=== PATIENT | female | born 1995 ===

== ENCOUNTER 2019-06-20 14:20 | Emergency (ER) | payer OTHER ==
[~2019-06-20] VITALS: Ht 167.6 cm; Wt 54.4 kg
--- NOTE | 2019-06-20 14:30 | NUR ---
ED Nurse Note: pt does not recall name of med that she is allergic to.
[2019-06-20 14:40] VITALS: BP 115/75
--- NOTE | 2019-06-20 14:40 | Emergency Room Report ---
History of Present Illness General Chief Complaint: Flu Like Symptoms Source: Patient Present Illness HPI 23-year-old female with no symptom past history is complaining of 2 days of body ache, fever and chills, cough and congestion. Patient rating the sore throat 3 out of 10 without radiation. Reports that she has been taking Phenergan for cough and has been feeling better. Complains of wheezing at night shortness of breath at night. Denies history of asthma, tobacco smoke. Denies abdominal pain, nausea vomiting. Has not taken any other medication for symptom relief. Patient is sitting comfortably with stable vital signs. Denies urinary symptoms. Allergies: Coded Allergies: UNABLE TO ASSESS (Unverified , 06/20/19) Patient History Past Medical History: see triage record Past Surgical History: unable to obtain Pertinent Family History: none Last Menstrual Period: 06/13/19 Now: No Immunizations: UTD Reviewed Nursing Documentation: PMH: Agreed; PSxH: Agreed Nursing Documentation-PMH Past Medical History: No Stated History Review of Systems All Other Systems: negative except mentioned in HPI Physical Exam Vital Signs Date Time Temp Pulse Resp B/P (MAP) Pulse Ox O2 Delivery O2 Flow Rate FiO2 06/20/19 14:30 97.5 106 18 114/74 (87) 97 Room Air Sp02 EP Interpretation: reviewed, normal General Appearance: no apparent distress, alert, GCS 15, non-toxic Head: normocephalic, atraumatic Eyes: bilateral eye normal inspection, bilateral eye PERRL ENT: hearing grossly normal, normal pharynx, no angioedema, normal voice Neck: full range of motion, supple, thyroid normal, supple/symm/no masses Respiratory: chest non-tender, lungs clear, normal breath sounds, no rhonchi, no retraction, no wheezing, speaking full sentences Cardiovascular #1: regular rate, rhythm, no edema, no murmur Cardiovascular #2: 2+ radial (R), 2+ radial (L) Gastrointestinal: normal bowel sounds, non tender, soft, non-distended, no guarding, no rebound Rectal: deferred Genitourinary: normal inspection, no CVA tenderness Musculoskeletal: back normal, gait/station normal, normal range of motion, non- tender Neurologic: alert, oriented x3, responsive, motor strength/tone normal, sensory intact, speech normal Psychiatric: judgement/insight normal, memory normal, mood/affect normal, no suicidal/homicidal ideation Skin: no rash Lymphatic: no adenopathy Medical Decision Making PA Attestation All my diagnosis and treatment plans were reviewed ad discussed with my supervising physician Dr. Soares Diagnostic Impression: Primary Impression: URI (upper respiratory infection) ER Course 23-year-old female with no symptom past history is complaining of 2 days of body ache, fever and chills, cough and congestion. Patient rating the sore throat 3 out of 10 without radiation. Reports that she has been taking Phenergan for cough and has been feeling better. Complains of wheezing at night shortness of breath at night. Denies history of asthma, tobacco smoke. Denies abdominal pain, nausea vomiting. Has not taken any other medication for symptom relief. Patient is sitting comfortably with stable vital signs. Denies urinary symptoms. Ddx considered but are not limited to: strep pharyngitis, URI, tonsillitis, peritonsillar abscess, influneza Vital signs: are WNL, pt. is afebrile H&PE are most consistent with: URI presumed to be viral due to the appearance of symptoms. ORDERS: Phenergan, albuterol inhaler, Medrol Dosepak ED INTERVENTIONS: None required at this time. DISCHARGE: At this time pt. is stable for d/c to home. Will provide printed patient care instructions, and any necessary prescriptions. Care plan and follow up instructions have been discussed with the patient prior to discharge. Patient to follow-up with a primary care provider if worsening symptoms return to the emergency room. At this time no indication for antibiotic as needed as there are no white exudates and no pharyngeal erythema noted. Patient has positive and therefore taking Tamiflu for flulike symptoms. Last Vital Signs Date Time Temp Pulse Resp B/P (MAP) Pulse Ox O2 Delivery O2 Flow Rate FiO2 06/20/19 14:30 97.5 106 18 114/74 (87) 97 Room Air Disposition: HOME, SELF-CARE Condition: Stable Scripts Methylprednisolone (Methylprednisolone*) 4MG Dspk 4 MG ORAL DIRECTED for 6 Days, #21 EA 0 Refills Day 1: Two tablets before breakfast, one after lunch, one after dinner, and two at bedtime. If started late in the day, take all six tablets at once or divide into two or three doses, unless otherwise directed by prescriber. Day 2: One tablet before breakfast, one after lunch, one after dinner, and two at bedtime Day 3: One tablet before breakfast, one after lunch, one after dinner, and one at bedtime Day 4: One tablet before breakfast, one after lunch, and one at bedtime Day 5: One tablet before breakfast and one at bedtime Day 6: One tablet before breakfast Prov: Coleman Huizar 06/20/19 Albuterol Sulfate (VENTOLIN HFA) 18 Gm [email or web address].[email or web address] 2 PUFFS INH EVERY 6 HOURS, #18 GM 0 Refills Prov: Coleman Huizar 06/20/19 Promethazine Hcl (PROMETHAZINE HCL*) 6.25 Mg/5 Ml Syrup 5 ML ORAL Q6H, #120 ML 0 Refills Prov: Coleman Huizar 06/20/19 Patient Instructions: Upper Respiratory Infection, Adult Additional Instructions: Take medication as directed, follow-up with your primary care provider. At this time Tamiflu will not be affected as it is already 48 hours past your symptoms. If worsening symptoms return to the emergency room. Coleman Huizar Jun 20, 2019 14:40
[2019-06-20] MEDS ORDERED: VENTOLIN HFA18 GM INH (14:41)
[2019-06-20] MEDS ORDERED: MEDROL DOSEPAK4 MG ORAL (14:41)
[2019-06-20] MEDS ORDERED: PROMETHAZI6.25 MG/1 ORAL (14:41)
[2019-06-20 14:55] VITALS: BP 122/70
--- NOTE | 2019-06-20 14:55 | NUR ---
ER DISCHARGE NOTE: Pt was seen due to bilateral earache and congestion. Patient is cleared to be discharged per PA, pt is aox4, on room air, with stable vital signs. pt was given dc and prescription instructions, pt was able to verbalize understanding, pt id band removed. pt is able to ambulate with steady gait. pt took all belongings.
== END 2019-06-20 14:55 | disposition home or self-care (01) ==
LOC: EMR 14:55
DX: J06.9 Acute upper respiratory infection, unspecified (principal)
CPT/HCPCS: 99282